=== PATIENT | female | born 1980 | race Two or more races ===

== ENCOUNTER 2023-06-08 19:35 | Emergency (ER) | payer OTHER ==
[~2023-06-08] VITALS: Ht 172.7 cm; Wt 84.4 kg
[2023-06-09] MEDS ORDERED: NORFLEX100MG PO (04:05)
[2023-06-09] MEDS ORDERED: KETO10TA2 PO (04:05)
== END 2023-06-09 04:19 | disposition home or self-care (01) ==
LOC: ER 19:36
DX: S30.0XXA Contusion of lower back and pelvis, initial encounter (principal); S70.02XA Contusion of left hip, initial encounter; W18.39XA Other fall on same level, initial encounter; Y93.89 Activity, other specified; Y92.520 Airport as the place of occurrence of the external cause; Y99.8 Other external cause status